=== PATIENT | female | born 1945 | race Caucasian/White ===

== ENCOUNTER → 2017-06-22 | Outpatient (CLI) | payer OTHER ==
[~2017-06-22] MED LIST: ACIPHEX20 MG PO; ATIVAN PO; BACTRIM DS TABL1 TA1 PO; CYMBALTA PO; DULOXETINE HCL60 MG PO; ESCITALOPRAM OX20 MG PO; FLEXERIL PO; FLEXERIL10 MG PO; GABAPENTIN800 MG PO; HYDROCODONE-APA1 T54 PO; IBUPROFEN800 MG PO; KLOR-CON PO; KLOR-CON SPRIN10 MEQ PO; LASIX20 MG PO; LORAZEPAM1 MG PO; LORTAB 10/500 T1 TAB PO; LYRICA PO; MICRO-K10 MEQ PO; NEURONTIN PO; NEURONTIN800 MG PO; NORCO 10/325 TA1 TAB PO; NORVASC PO; NORVASC10 MG PO; OMEPRAZOLE40 M1 PO; OXYCODON HCL-AP1 TA2 PO; OXYCODONE HCL15 MG PO; OXYCONTIN20 MG PO; PRAVASTATIN SOD20 MG PO; PRILOSEC20 MG PO
--- NOTE | ~2017-06-22 | MY29 ---
[facility] A Service of [facility] RADIOLOGY TEXT RESULTS PATIENT: SANTINO SEE LOCATION: [facility] : 49 UNIT #: [id number] AGE: [address]: Shaheed Mckeon MD SEX: F ORDER DR: [id number] [facility] [address] [place], [place] [address] [id number] O MR#: [id number] Acc #: [id number] NAME: SANTINO SEE : 1945 SEX: F STUDY DATE/TIME: 06/22/2017 13:08 UNIT: [facility] ROOM: STUDY DESCRIPTION: MY [facility] SCREENING W/ CAD BILAT Attending Physician: Shaheed Mckeon Jr., M.D. Ordering Physician: Shaheed Mckeon Jr., M.D. Primary Care Physician: Shaheed Mckeon Jr., M.D. MEDICAL IMAGING REPORT This report is preliminary unless electronic signature is present EXAM Digital screening mammogram 06/22/2017 HISTORY 72-year-old woman, no risk elevation. Prior bilateral breast biopsies. Annual screening. COMPARISON STUDIES Comparison mammograms date to 04/16/2012 with most recent 02/17/2016. FINDINGS Digital imaging of each breast was completed utilizing screening protocol. Review includes FDA-approved CAD device. Breast parenchyma is predominantly fatty replaced. Mild parenchymal dominance is stable, inner hemisphere right breast. There is no interval occurring breast mass. There are no suspicious microcalcifications and no architectural deformity. IMPRESSION Negative mammogram. Annual screening recommended. BIRADS: 1 Negative. Patients over the age of 40 are entered into a reminder system with target due date for the next mammogram. A result letter will also be sent to the patient. Dictated by... Cortes Yang M.D. THIS IS AN ELECTRONICALLY VERIFIED REPORT Cortes Yang M.D. at 06/25/2017 8:07 AM [facility] A Service of [facility] RADIOLOGY TEXT RESULTS PATIENT: SANTINO SEE LOCATION: [facility] : 49 UNIT #: [id number] AGE: [address]: Shaheed Mckeon MD SEX: F ORDER DR: MARLON/angel TD: 06/22/2017 20:47 JOB #: [id number] MEDICAL IMAGING REPORT Page 1 of 1 COPY
== END | disposition home or self-care (01) ==
LOC: CWCC 12:39
DX: Z12.31 Encounter for screening mammogram for malignant neoplasm of breast (principal)
CPT/HCPCS: G0202